=== PATIENT | male | born 1990 ===

== ENCOUNTER 2018-04-23 06:00 | Emergency (ER) | payer OTHER ==
[2018-04-23 06:14] VITALS: O2SAT 100
[2018-04-23] MEDS ORDERED: Morphine 4 MG/ML VIAL ONE (06:25)
--- NOTE | 2018-04-23 06:27 | C.PDOC ---
History Of Present Illness 27 year old male presents to the emergency department with complaints of left flank pain which is radiating down to his left testicle since 4AM this morning. Patient reports that he woke up in pain, and had four bowel movements since waking up. He denies heavy lifting, or any other exertion. Time Seen by Provider: 04/23/18 06:21 Chief Complaint (Nursing): Abdominal Pain History Per: Patient History/Exam Limitations: no limitations Onset/Duration Of Symptoms: Hrs (2) Current Symptoms Are (Timing): Still Present Context: Other Severity: Severe Pain Scale Rating Of: 8 Location Of Pain/Discomfort: LLQ, Other (left flank) Radiation Of Pain To:: Other (left testicle) Quality Of Discomfort: Sharp, Stabbing, "Pain" Associated Symptoms: denies: Nausea, Vomiting, Diarrhea, Urinary Symptoms Exacerbating Factors: None Alleviating Factors: None Last Bowel Movement: Today Recent travel outside of the [place]: No Additional History Per: Patient Past Medical History Reviewed: Historical Data, Nursing Documentation, Vital Signs Vital Signs: Last Vital Signs Temp 97.3 F L 04/23/18 06:13 Pulse 76 04/23/18 06:13 Resp 18 04/23/18 06:13 BP 147/74 04/23/18 06:13 Pulse Ox 100 04/23/18 06:36 - Medical History PMH: Asthma Other PMH: Pituitary tumor Surgical History: No Surg Hx Family History: States: No Known Family Hx - Social History Hx Alcohol Use: Yes Hx Substance Use: No Review Of Systems Constitutional: Negative for: Fever, Chills Gastrointestinal: Negative for: Nausea, Vomiting, Diarrhea Genitourinary: Positive for: Other (testicular pain). Negative for: Dysuria, Scrotal Pain Musculoskeletal: Positive for: Other (left flank pain) Skin: Negative for: Rash Neurological: Negative for: Weakness Psych: Negative for: Anxiety Physical Exam - Physical Exam Appears: Non-toxic, In Acute Distress (mildly uncomfortable) Skin: Warm, Dry Head: Normacephalic Eye(s): bilateral: Normal Inspection Nose: Normal Neck: Trachea Midline, Supple Chest: Symmetrical Cardiovascular: Rhythm Regular Respiratory: No Rales, No Rhonchi, No Wheezing Gastrointestinal/Abdominal: Soft, No Tenderness, No Guarding, No Rebound Back: CVA Tenderness Male Genital: Testicular Tenderness (left testicle), No Testicular Swelling, No Inguinal Tenderness, No Inguinal Swelling, No Scrotal Swelling, No Circumcised, Other (no masses felt) Extremity: Normal ROM Extremity: Bilateral: Atraumatic Pulses: Left Dorsalis Pedis: Normal, Right Dorsalis Pedis: Normal Neurological/Psych: Oriented x3 Gait: Steady ED Course And Treatment O2 Sat by Pulse Oximetry: 100 (RA) Pulse Ox Interpretation: Normal Progress Note: Plan: CT Abdomen and Pelvis. CMP. Lipase. CBC. Morphine 4mg IV. NaCl IV Fluids. Zofran 4mg IVP. Urinalysis. US Testicular Disposition Counseled Patient/Family Regarding: Studies Performed, Diagnosis - Disposition Disposition Time: 06:27 Condition: FAIR Forms: [employer] (Brazilian) - Clinical Impression Clinical Impression: Abdominal pain, Testicular pain, left - Scribe Statement The provider has reviewed the documentation as recorded by the Scribe (Scottie Doe) Provider Attestation: All medical record entries made by the Scribe were at my direction and personally dictated by me. I have reviewed the chart and agree that the record accurately reflects my personal performance of the history, physical exam, medical decision making, and the department course for this patient. I have also personally directed, reviewed, and agree with the discharge instructions and disposition. Physician Patient Turnover Patient Signed Over To: Amanda Mccollum Handoff Comments: pending ct, us and albs and dispo
[2018-04-23] MEDS ORDERED: Sodium Chloride 0.9% 1,000 ML IV ONE (06:28)
[2018-04-23] MEDS ORDERED: Morphine 4 MG/ML VIAL IV ONE (06:28)
[2018-04-23 07:02] LABS: BASO # 0.1 K/uL (0.0-0.2); BASO % 0.7 % (0.0-2.0); EOS # 0.5 K/uL (0.0-0.7); EOS % 4.5 % (0.0-4.0); HEMOGLOBIN 15.1 g/dL (12.0-18.0); LYMPH # 2.5 K/uL (1.0-4.3); LYMPH % 24.3 % (20.0-40.0); MEAN CELL VOLUME 86.8 fL (80.0-94.0); MEAN CORPUSCULAR HEMOGLOBIN 30.1 pg (27.0-31.0); MEAN CORPUSCULAR HGB CONC 34.6 g/dL (33.0-37.0); MEAN PLATELET VOLUME 9.8 fL (7.2-11.7); MONO # 0.9 K/uL (0.0-0.8); MONO % 8.6 % (0.0-10.0); NEUT # 6.3 K/uL (1.8-7.0); NEUT % 61.9 % (50.0-75.0); RBC 5.02 Mil/uL (4.40-5.90); RED CELL DISTRIBUTION WIDTH 13.7 % (11.5-14.5); WHITE BLOOD COUNT 10.2 K/uL (4.8-10.8)
[2018-04-23 07:13] LABS: ALB/GLOB RATIO 1.1 (1.0-2.1); ALBUMIN 4.1 g/dL (3.5-5.0); ALT/SGPT 14 U/L (21-72); AST/SGOT 20 U/L (17-59); BLOOD UREA NITROGEN 21 mg/dL (9-20); CALCIUM 9.3 mg/dl (8.6-10.4); GFR AFRICAN-AMERICAN > 60; GFR NON-AFRICAN AMERICAN > 60; LIPASE 51 U/L (23-300)
--- NOTE | 2018-04-23 08:01 | CT ---
EXAM: CT Abdomen and Pelvis Without Intravenous Contrast CLINICAL HISTORY: 27 years old, male; Pain; Abdominal pain and other: Llq pain, radiating to left testicle TECHNIQUE: Axial computed tomography images of the abdomen and pelvis without intravenous contrast. All CT scans at this facility use one or more dose reduction techniques, viz.: automated exposure control; ma/kV adjustment per patient size (including targeted exams where dose is matched to indication; i.e. head); or iterative reconstruction technique. 664 images are submitted. Axial images are submitted and lung and soft tissue windows. Coronal and sagittal reformatted images were created and reviewed. Axial reformatted images were created and reviewed. COMPARISON: No relevant prior studies available. FINDINGS: Limitations: Absence of IV contrast decreases sensitivity for detecting vascular and visceral injury and abnormality. Lung bases: Unremarkable. No mass. No consolidation. ABDOMEN: Liver: Unremarkable. Gallbladder and bile ducts: Unremarkable. No ductal dilation. Pancreas: Unremarkable. No ductal dilation. Spleen: Unremarkable. No splenomegaly. Adrenals: Right adrenal calcifications. Normal left adrenal gland. Kidneys and ureters: Mild left hydroureteronephrosis with a 4 mm left distal ureteral/UVJ stone seen on image 150 series 3 representing acute obstructive uropathy. Nonobstructive 5 mm left lower pole renal stone. Stomach and bowel: Diverticulosis. Nonspecific colonic thickening likely due to under distention versus nonspecific colitis. PELVIS: Appendix: Suboptimally seen normal appendix. Bladder: Partially decompressed bladder with bladder wall thickening. Correlation with urinalysis is recommended only if clinical cystitis is suspected. Possible urachal remnant. Reproductive: Prostate gland is seen. ABDOMEN and PELVIS: Intraperitoneal space: Unremarkable. No free air. No significant fluid collection. Bones/joints: No acute fracture. No dislocation. Soft tissues: Unremarkable. Vasculature: The aorta Lymph nodes: Unremarkable. No enlarged lymph nodes. IMPRESSION: Mild left hydroureteronephrosis with a 4 mm left distal ureteral/UVJ stone seen on image 150 series 3 representing acute obstructive uropathy.
--- NOTE | 2018-04-23 08:33 | US ---
Testicular ultrasound History: Left testicular pain. Comparison: None available. Technique: Real-time sonography was performed through scrotum. Findings: Right testicle: 5.2 x 2.3 x 3.4 centimeters. Normal flow. Right epididymis measures 1.3 x 1.1 x 1.1 centimeters. Normal flow. Left testes: 5.4 x 2.3 x 3.0 centimeters. Normal flow. Left epididymis measures 1.6 x 1.3 x 1.5 centimeters. Normal flow. Hypoechoic cysts at the level of the left epididymis measuring 6 x 5 x 7 and 5 x 4 x 5 millimeters. Small left scrotal hydrocele. Impression: Left epididymal cysts. Small left scrotal hydrocele.
[2018-04-23 08:50] LABS: SQUAMOUS EPITHIAL 1 /hpf (0-5); URINE BILIRUBIN NEGATIVE (NEGATIVE); URINE BLOOD 2+ (NEGATIVE); URINE CLARITY Clear (Clear); URINE COLOR Yellow (YELLOW); URINE GLUCOSE (UA) NORMAL (Normal); URINE LEUKOCYTE ESTERASE NEG Leu/uL (Negative); URINE PROTEIN NEGATIVE (NEGATIVE); URINE UROBILINOGEN NORMAL mg/dL (0.2-1.0)
[2018-04-23 09:10] VITALS: BP 138/66; PULSE 68; RESP 16; TEMP 98.2
== END 2018-04-23 10:33 | disposition home or self-care (01) ==
LOC: C.ER 06:00
DX: N50.812 Left testicular pain (principal); R10.32 Left lower quadrant pain
CPT/HCPCS: 74176; 76870; 80053; 81001; 83690; 85025; 96374; 99285; J2270; J2405; J7030

== ENCOUNTER 2019-01-27 19:18 | Emergency (ER) | payer OTHER ==
[2019-01-27 19:31] VITALS: BP 128/76; PULSE 68; RESP 20; TEMP 97.8; O2SAT 97
[2019-01-27] MEDS ORDERED: Fluorescein 1 mg Ophthalmic Strip ONE (20:09)
[2019-01-27] MEDS ORDERED: Tobramycin 0.3% OPH OINT OS STA (20:34)
[2019-01-27] MEDS ORDERED: Tobramycin 0.3% OPH OINT ONE (20:45)
--- NOTE | 2019-01-27 20:50 | C.PDOC ---
History Of Present Illness 28 year old male presents to the ED c/o FB sensation to his left eye. Patient reports some cement debris flew into his left eye this morning, tried to flush his eye with no relief. Patient now c/o left eye irritation and tearing. Patient denies fever, chills, headache, visual changes. Time Seen by Provider: 01/27/19 19:51 Chief Complaint (Nursing): ENT Problem History Per: Patient History/Exam Limitations: no limitations Onset/Duration Of Symptoms: Hrs Current Symptoms Are (Timing): Still Present Quality: "Pain" Wears Contact Lens?: No Associated Symptoms: Pain, FB Sensation Recent travel outside of the [place]: No Additional History Per: Patient Past Medical History Reviewed: Historical Data, Nursing Documentation, Vital Signs Vital Signs: Last Vital Signs Temp 97.8 F 01/27/19 19:20 Pulse 68 01/27/19 19:20 Resp 20 01/27/19 19:20 BP 128/76 01/27/19 19:20 Pulse Ox 97 01/27/19 19:20 - Medical History PMH: Asthma Surgical History: No Surg Hx Family History: States: Unknown Family Hx - Social History Hx Alcohol Use: Yes Hx Substance Use: No - Immunization History Hx Tetanus Toxoid Vaccination: No Hx Influenza Vaccination: No Hx Pneumococcal Vaccination: No Review Of Systems Constitutional: Negative for: Fever, Chills Eyes: Positive for: Pain, Redness. Negative for: Vision Change ENT: Negative for: Nose Discharge, Nose Congestion Gastrointestinal: Negative for: Nausea, Vomiting Skin: Negative for: Rash Neurological: Negative for: Headache Physical Exam - Physical Exam Appears: Non-toxic, No Acute Distress Skin: Normal Color, Warm, Dry Head: Atraumatic, Normacephalic Eye(s): bilateral: PERRL, EOMI, right: Normal Inspection, left: Other (small dark FB left conjuctiva. Visual acuity 20/20) Oral Mucosa: Moist Neck: Normal ROM, Supple Extremity: Normal ROM Neurological/Psych: Oriented x3, Normal Speech, Normal Cognition Gait: Steady ED Course And Treatment O2 Sat by Pulse Oximetry: 97 (ON RA) Pulse Ox Interpretation: Normal Progress Note: Plan: - Using small Q-tip, application removed FB from the left eye. Eye irrigated with saline, small conjunctival abrasion in place of FB. Patient was given Tobrex ointment, and given rest to take home. Patient was advised to use the Tobrex 2 times a day for 3 days and advised to follow up with Opthalmologist. Disposition Counseled Patient/Family Regarding: Diagnosis, Need For Followup - Disposition Referrals: Darío Washington MD [Staff Provider] - Disposition: HOME/ ROUTINE Disposition Time: 20:48 Condition: STABLE Additional Instructions: Apply oint 2 x daily for 2-3 days If pain, irritation or discomfort see eye doctor on wednesday avoid rubbing the eye Return to ER if severe pain, decrease vision or worse Instructions: Foreign Body in Eye (DC) Forms: [employer] (Burkinan) - Clinical Impression Clinical Impression: Foreign body of left eye - PA / BARREL RIFLER HOOK / Resident Statement MD/DO has reviewed & agrees with the documentation as recorded. - Scribe Statement The provider has reviewed the documentation as recorded by the Scribe V[place] Ware All medical record entries made by the Scribe were at my direction and personally dictated by me. I have reviewed the chart and agree that the record accurately reflects my personal performance of the history, physical exam, medical decision making, and the department course for this patient. I have also personally directed, reviewed, and agree with the discharge instructions and disposition.
== END 2019-01-27 20:58 | disposition home or self-care (01) ==
LOC: C.ER 19:18
DX: T15.92XA Foreign body on external eye, part unspecified, left eye, initial encounter (principal); X58.XXXA Exposure to other specified factors, initial encounter; Y92.89 Other specified places as the place of occurrence of the external cause; Y99.8 Other external cause status